=== PATIENT | male | born 1965 | race Caucasian/White ===

== ENCOUNTER → 2019-12-14 | Outpatient (CLI) | payer OTHER ==
--- NOTE | 2019-12-26 19:39 | SLEEP ---
[address] [address] SLEEP STUDY REPORT Name: SAHLINI MEADE Room: [facility]#: [id number] Admission: 12/14/19 Attend Phys: Adrianna Gómez, Discharge: Date of : 61 Report #: [id number] THIS REPORT FOR: //name// CC: Adrianna Gómez This study has been reviewed in its entirety by a board certified sleep specialist DATE OF SERVICE: 12/14/2019 HOME SLEEP STUDY REFERRING PHYSICIAN: Dr. Gómez. The patient is a 54-year-old who weighs 180 pounds with a BMI of 29. The patient's [place] score was 5. The patient underwent home sleep study performed at [facility]. Total recording time was 434 minutes. During the night study, the patient had 47 obstructive apneas, no central or mixed apneas and 152 hypopneas. The patient's AHI was 28 per hour. Supine sleep was not recorded. Nocturnal oximetry study revealed an average oxygen saturation of 93% with the lowest of 77%. Twenty-one minutes were spent in oxygen saturation less than 90% and 2.6 minutes with saturation of less than 85%. Mean heart rate 51 beats per minute with a maximum of 79 beats per minute. IMPRESSION: 1. Moderate obstructive sleep apnea at an AHI of 28 per hour. 2. Nocturnal hypoxia secondary to obstructive sleep apnea. RECOMMENDATIONS: 1. The patient would benefit from return to the sleep lab for in-lab titration study. Alternate treatment option would include home auto-titration study. 2. Once the patient is optimally treated with CPAP, then follow up in 4-6 weeks to assess compliance and to document clinical improvement. 3. Weight loss is advised. 4. Avoid [employer] depressants. 5. Cautioned regarding driving until symptoms of sleep apnea resolve with the use of CPAP. <ELECTRONICALLY SIGNED> By: Gee Figueroa MD 12/26/19 [id number] Figueroa MD /nt
== END ==
LOC: M.SLEEPLAB 16:30
PROVIDERS: ATTEND Nurse Practitioner Family
DX: G47.34 Idiopathic sleep related nonobstructive alveolar hypoventilation (principal); G47.33 Obstructive sleep apnea (adult) (pediatric)